=== PATIENT | male | born 1985 | race African-American/Black ===

== ENCOUNTER 2019-09-02 13:18 | Emergency (ER) | payer OTHER ==
[~2019-09-02] VITALS: Ht 172.7 cm; Wt 73.0 kg
[2019-09-02] MEDS ORDERED: IBUPROFEN 600MG TABLET PO STA (14:57)
[2019-09-02] MEDS ORDERED: BACITRACIN ZINC OINT UDPKT TOP ONE (15:00)
[2019-09-02] MEDS ORDERED: TETANUS, DIPHTHERIA, PERTUSSIS VAC/PF 0.5ML (>7YR OLD) IM ONE (15:00)
[2019-09-02 16:49] VITALS: BP 120/81
== END 2019-09-02 16:50 | disposition home or self-care (01) ==
LOC: ER 13:18
DX: S50.312A Abrasion of left elbow, initial encounter (principal); S99.812A Other specified injuries of left ankle, initial encounter; V23.4XXA Motorcycle driver injured in collision with car, pick-up truck or van in traffic accident, initial encounter; Y93.89 Activity, other specified; Y92.488 Other paved roadways as the place of occurrence of the external cause
CPT/HCPCS: 73080; 73610; 90471; 90715; 99284